=== PATIENT | female | born 1995 | race Caucasian/White ===

== ENCOUNTER 2024-01-06 18:00 | Inpatient (IN) | payer OTHER ==
[~2024-01-06 18:00] MED LIST: HYDROCODON-ACE1 EAC8 PO
[2024-01-06 18:21] LABS: SOURCE, WET MOUNT VAGINAL
[2024-01-06 18:22] LABS: BACTERIA, WET MOUNT 3+ (NEGATIVE); EPITHELIAL CELLS, WET MOUNT 3+ (NEGATIVE); RBC, WET MOUNT NEGATIVE (NEGATIVE)
[2024-01-06 18:24] LABS: WBC, WET MOUNT 1+ (NEGATIVE)
[2024-01-06 18:25] LABS: TRICHOMONAS, WET MOUNT NEGATIVE (NEGATIVE)
[2024-01-06 18:28] LABS: CLUE CELLS, WET MOUNT NEGATIVE (NEGATIVE)
[2024-01-06 18:29] LABS: YEAST, WET MOUNT POSITIVE (NEGATIVE)
[2024-01-06] MEDS ORDERED: LACTATED RINGER'S 1,000 ML IV SCH ×2 (18:30→19:30)
[2024-01-06 18:36] LABS: BASOPHILS 0.5 % (0-2); EOSINOPHILS 0.7 % (0-6); HEMATOCRIT 33.8 % (35.0-50.0); HEMOGLOBIN 11.5 g/dL (12.0-18.0); LYMPHOCYTES 20.9 % (24-44); MCH 29.1 (27-36); MCV 85.6 fl (81-99); MONOCYTES 5.6 % (0-12); NEUTROPHILS 72.3 % (39-80); PLATELET COUNT 262 K/uL (140-440); RBC 3.94 M/ul (4.3-5.7); RDW 13.8 (10.5-15.0)
[2024-01-06 19:16] LABS: BILIRUBIN, URINE NEGATIVE (negative); BLOOD/HGB, URINE LARGE (Negative); KETONE, URINE TRACE (Negative); LEUK ESTERASE, URINE NEGATIVE (negative); NITRITE, URINE NEGATIVE (negative)
[2024-01-06 19:26] LABS: BACTERIA, URINE RARE /hpf (negative); CASTS, URINE NONE SEEN \\lpf; COLLECTION TYPE, URINE CLEAN CATCH; CRYSTALS, URINE NONE SEEN (0-1+); EPITHELIAL CELLS, URINE SQUAMOUS 3+ /lpf (0-1+); RED BLOOD CELLS, URINE >50 /hpf (0-5); REFLEX CULTURE, URINE No (No)
[2024-01-06 19:30] LABS: AMPHETAMINES, URINE NEGATIVE (NEGATIVE); BARBITURATES, URINE NEGATIVE (NEGATIVE); BENZODIAZEPINE, URINE NEGATIVE (NEGATIVE); BUPRENORPHINE, URINE NEGATIVE (NEGATIVE); CANNABINOID, URINE NEGATIVE (NEGATIVE); COCAINE, URINE NEGATIVE (NEGATIVE); ECSTASY, URINE NEGATIVE (NEGATIVE); FENTANYL, URINE NEGATIVE (NEGATIVE); METHADONE, URINE NEGATIVE (NEGATIVE); OPIATES, URINE NEGATIVE (NEGATIVE); OXYCODONE, URINE NEGATIVE (NEGATIVE); PHENCYCLIDINE, URINE NEGATIVE (NEGATIVE)
[2024-01-06] MEDS ORDERED: CEFTRIAXONE/SODIUM CHLORIDE 1 GM/100 ML PIGGYBACK IV SCH (19:33)
[2024-01-06] MEDS ORDERED: MORPHINE SULFATE 4 MG/ML VIAL IV PRN (19:45)
[2024-01-06] MEDS ORDERED: ondansetron HCL 4 MG/2 ML VIAL IV PRN (19:45)
[2024-01-06 19:49] LABS: N. GONORRRHOEAE BY PCR NOT DETECTED (NOT DETECT)
[2024-01-06 20:57] LABS: ABO O; ANTIBODY SCREEN NEGATIVE; RH POSITIVE
[2024-01-07] MEDS ORDERED: CLOTRIMAZOLE 1% 30 GM TUBE TOP SCH (10:49)
[2024-01-07] MEDS ORDERED: CLOTRIMAZOLE 45 GM TUBE VAGINAL SCH (11:03)
[2024-01-07] MEDS ORDERED: TAMSULOSIN HCL 0.4 MG CAP PO SCH (11:53)
[2024-01-07] MEDS ORDERED: ACETAMINOPHEN 500 MG TAB PO PRN (12:00)
[2024-01-07] MEDS ORDERED: SIMETHICONE 80 MG CHEW PO PRN (21:00)
[2024-01-09] MEDS ORDERED: NITROFURANTOIN MONOHYD MACROCR 100 MG CAP PO ONE ×2 (07:30→09:00)
== END 2024-01-09 10:30 | disposition home or self-care (01) | DRG 833 ==
LOC: FBCO 18:00 → FBC 19:34
PROVIDERS: ADMIT Obstetrics & Gynecology; ATTEND Obstetrics & Gynecology
DX: O23.02 Infections of kidney in pregnancy, second trimester (principal); O99.891 Other specified diseases and conditions complicating pregnancy; Z3A.21 21 weeks gestation of pregnancy; N20.0 Calculus of kidney; Z79.899 Other long term (current) drug therapy
CPT/HCPCS: 36415; 59025; 76770; 76815; 76817; 80307; 81001; 85025; 86850; 86900; 86901; 87210; 96360; A9270; G0463; J0696; J2270; J7121